=== PATIENT | female | born 1995 | race Caucasian/White ===

== ENCOUNTER 2022-11-24 22:00 | Inpatient (IN) | payer BC ==
[~2022-11-24 22:00] MED LIST: Bupivacaine 0.25% HCL 30 ML VIAL ONE
[2022-11-24 23:02] VITALS: BMI 24.6
[2022-11-24] MEDS ORDERED: Lidocaine 1% (PF) 30 ML VIAL SC PRN (23:15)
[2022-11-24] MEDS ORDERED: Promethazine HCl 25 MG/ML VIAL IM PRN (23:15)
[2022-11-24] MEDS ORDERED: Ondansetron PF 4 MG/2 ML Vial IVP PRN (23:15)
[2022-11-24] MEDS ORDERED: Penicillin G Potassium 5 MILL.UNITS in Sodium Chloride 0.9% 100 ML IVPB SCH (23:15)
[2022-11-24] MEDS ORDERED: Acetaminophen 500 MG TAB PO PRN (23:15)
[2022-11-24] MEDS ORDERED: Ibuprofen 800 MG TAB PO PRN (23:15)
[2022-11-24] MEDS ORDERED: NS w/ Oxytocin 30 units 500 ML IV SCH (23:15)
[2022-11-24] MEDS ORDERED: Lactated Ringer's 1,000 ML IV SCH ×2 (23:15)
[2022-11-24] MEDS ORDERED: hydrALAZINE 20 MG/ML VIAL SLOW IVP PRN (23:15)
[2022-11-24] MEDS ORDERED: Tranexamic Acid 1,000 MG/10 ML VIAL IVP PRN (23:19)
[2022-11-24] MEDS ORDERED: Misoprostol 200 MCG TAB RC PRN (23:30)
[2022-11-24] MEDS ORDERED: Diphenoxylate HCl/Atropine Tablet PO PRN ×2 (23:30)
[2022-11-24] MEDS ORDERED: NS w/ Oxytocin 30 units 500 ML IVPB SCH (23:30)
[2022-11-24] MEDS ORDERED: Methylergonovine 0.2 MG/ML VIAL IM PRN (23:30)
[2022-11-24] MEDS ORDERED: Carboprost 250 MCG/ML AMP IM PRN (23:30)
[2022-11-25 01:22] LABS: Hemoglobin 11.6 g/dL (12.0-15.5); Mean Corpuscular Hemoglobin 32.3 pg (27.0-33.0); Mean Corpuscular Volume 89.7 fl (81.6-98.3); Mean Platelet Volume 11.2 fl (7.4-10.4); Platelet Count 182 10x3/uL (150-450); RBC Distribution Width 11.9 % (11.5-14.5); Red Blood Cell (RBC) Count 3.59 10x6/uL (3.90-5.03); White Blood Cell (WBC) Count 14.3 10x3/uL (3.5-10.5)
[2022-11-25 01:43] LABS: Syphilis Antibody Nonreactive (Nonreactive); Syphilis Antibody Index 0.05 S/CO (<1.00 Non-Reactive)
[2022-11-25 01:44] LABS: HBSAg Index 0.17 S/CO (0-0.99); Hep B Surf Ag Non-Reactive S/CO (NonReactive)
[2022-11-25 01:45] LABS: SARS-CoV-2 NAA Rapid Test Not Detected (NotDetected)
[2022-11-25] MEDS: Penicillin G 2.5 MILL.units 2.5 MILL.UNITS in Premix Bag 1 BAG IVPB SCH ×3 (04:02→16:09)
[2022-11-25] MEDS: Butorphanol Tartrate 1 MG/ML VIAL SLOW IVP PRN ×2 (05:41→07:56)
[2022-11-25] MEDS ORDERED: Fentanyl 2 mcg/Bup 0.1% Cadd 100 ML ONE (08:54)
[2022-11-25] MEDS ORDERED: diphenhydrAMINE 50 MG/ML VIAL IVP PRN (09:54)
[2022-11-25] MEDS ORDERED: Ondansetron PF 4 MG/2 ML Vial IVP PRN ×2 (09:54→23:15)
[2022-11-25] MEDS ORDERED: Acetaminophen 325 MG TAB PO PRN ×2 (09:54→19:08)
[2022-11-25] MEDS ORDERED: Moisturizing Cream (Eucerin) 113 GM JAR TOP PRN (09:54)
[2022-11-25] MEDS ORDERED: Lactated Ringer's 500 ML IV PRN (09:54)
[2022-11-25] MEDS ORDERED: Promethazine HCl 25 MG/ML VIAL IM PRN (09:54)
[2022-11-25] MEDS ORDERED: Naloxone HCl 0.4 mg/ml Vial IVP PRN ×2 (09:54)
[2022-11-25] MEDS ORDERED: ePHEDrine Sulfate 50 MG/10 ML VIAL SLOW IVP PRN (09:54)
[2022-11-25] MEDS ORDERED: Fentanyl 2 mcg/Bupivacaine 0.1% Cassette 100 ML EPIDURAL SCH (10:00)
[2022-11-25] MEDS ORDERED: Communication Order-Pharmacy FS SCH (10:00)
[2022-11-25] MEDS ORDERED: Ampicillin 2 GM VIAL ONE (17:19)
[2022-11-25] MEDS ORDERED: Witch Hazel-Glycerin 1 EACH JAR TOP PRN (19:08)
[2022-11-25] MEDS ORDERED: hydrALAZINE 20 MG/ML VIAL SLOW IVP PRN (23:13)
[2022-11-25] MEDS ORDERED: Misoprostol 200 MCG TAB VAG PRN (23:14)
[2022-11-25] MEDS ORDERED: Bisacodyl 10 MG SUPP PR PRN (23:15)
[2022-11-25] MEDS ORDERED: Benzocaine-Menthol 82.5 ML CAN TOP PRN (23:15)
[2022-11-25] MEDS ORDERED: Milk Of Magnesia 30 ML UDCUP PO PRN (23:15)
[2022-11-25] MEDS ORDERED: HYDROcodone/Acetaminophen 5/325 mg Tablet PO PRN ×2 (23:15)
[2022-11-25] MEDS ORDERED: Boostrix 0.5 ML (Tdap) VIAL (>/=7 yrs of age) IM SCH (23:15)
[2022-11-25] MEDS ORDERED: NS w/ Oxytocin 30 units 500 ML IVPB PRN (23:16)
[2022-11-26] MEDS: Ibuprofen 800 MG TAB PO SCH ×3 (00:24→18:18)
[2022-11-26] MEDS ORDERED: Ibuprofen 800 MG TAB PO SCH (06:00)
[2022-11-26] MEDS: Docusate 100 MG CAP PO SCH ×2 (08:36→21:10)
[2022-11-26] MEDS: Ferrous Sulfate 325 MG TAB PO SCH ×2 (08:37→18:18)
[2022-11-27] MEDS: Ibuprofen 800 MG TAB PO SCH ×2 (01:21→08:17)
[2022-11-27] MEDS: Ferrous Sulfate 325 MG TAB PO SCH (08:16)
[2022-11-27] MEDS: Docusate 100 MG CAP PO SCH (08:16)
[2022-11-27 08:46] VITALS: BP 109/69; TEMP 97.9
== END 2022-11-27 11:40 | disposition home or self-care (01) | DRG 807 ==
LOC: CSHLD/OP 22:00 → CSHLD 22:59 → CSHPED 11-25 21:13
PROVIDERS: ADMIT Obstetrics & Gynecology; ATTEND Obstetrics & Gynecology
PROC: 10D07Z6 Extraction of Products of Conception, Vacuum, Via Natural or Artificial Opening (ICD-10-PCS; principal; 2022-11-25)
PROC: 0KQM0ZZ Repair Perineum Muscle, Open Approach (ICD-10-PCS; 2022-11-25)
PROC: 0W8NXZZ Division of Female Perineum, External Approach (ICD-10-PCS; 2022-11-25)
PROC: 10907ZC Drainage of Amniotic Fluid, Therapeutic from Products of Conception, Via Natural or Artificial Opening (ICD-10-PCS; 2022-11-25)
DX: O99.824 Streptococcus B carrier state complicating childbirth (principal); Z37.0 Single live birth; Z3A.39 39 weeks gestation of pregnancy; Z20.822 Contact with and (suspected) exposure to COVID-19; Z86.16 Personal history of COVID-19; O32.8XX0 Maternal care for other malpresentation of fetus, not applicable or unspecified; O70.1 Second degree perineal laceration during delivery
CPT/HCPCS: 36415; 51702; 85014; 85018; 85027; 86780; 86850; 86900; 86901; 87340; 99285; J0595; J2540; J3490; J7120; S0020; U0002